=== PATIENT | male | born 1985 | race Caucasian/White ===

== ENCOUNTER 2022-07-20 01:27 | Emergency (ER) | payer OTHER, SELFPAY ==
[2022-07-20 01:45] VITALS: BP 153/100; PULSE 122; RESP 20; TEMP 36.1; O2SAT 97; BMI 30.3
[2022-07-20] MEDS: LORazepam 2 MG/ML inj 0.5 MG IVP (02:12)
[2022-07-20] MEDS: GI COCKTAIL (VISC LIDO/ANTACID) 30 ML PO (02:18)
[2022-07-20 02:22] LABS: Chloride* 104 mmol/L (96-114); Potassium* 3.7 mmol/L (3.6-5.1); Sodium* 141 mmol/L (135-149)
[2022-07-20 02:24] LABS: Creatinine* 0.9 mg/dL (0.5-1.5); Est. Creatinine Clearance* 115.65; Estimated Glomerular Filt Rate 115 ml/min
[2022-07-20 02:25] LABS: Blood Urea Nitrogen* 14 mg/dL (5-24); Calcium* 9.9 mg/dL (8.4-10.6); Carbon Dioxide* 24 mmol/L (20-32); Glucose* 113 mg/dL (60-115)
[2022-07-20 02:40] VITALS: BP 125/85; PULSE 94; RESP 16; O2SAT 96
[2022-07-20 02:40] LABS: Troponin I* < 0.01 ng/mL (0.01-0.04)
--- NOTE | 2022-07-20 02:42 | ED.NURSE ---
Patient reports improvement of symptoms. Denies further needs at this times.
[2022-07-20 03:00] VITALS: BP 141/90; PULSE 90; RESP 14; O2SAT 96
--- NOTE | 2022-07-20 03:36 | ED.CHESTPAIN ---
HPI - Chest Pain General Chief Complaint: Chest Pain Stated Complaint: Chest pain Time Seen by Provider: 07/20/22 01:57 History of Present Illness HPI narrative: 36-year-old man presenting to the emergency department with concern of some burning epigastric and sternal chest discomfort that he would relate to heartburn. He had tried some Tums and did not make much difference. Became increasingly stressed about this. Does report some tingliness in his hands. He thinks he is probably having now panic attack. His heart rate he said was really high and he just could not calm down the way he might typically try to do. Over the last 3 months has had maybe 5 or 6 panic attacks. Notes a history of increased anxiety this time of year. Does have a family with children. Tonight with the heartburn/chest pain he was worried he might be having a heart attack. No personal history of cardiovascular disease. No dysrhythmias noted. Sounds like father may have had early cardiac disease. 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 Has also history of bipolar disorder for which he takes lamotrigine. Trazodone for sleep usually works and just did not help him tonight. Related Data Home Medications Medication Instructions Recorded Confirmed lamotrigine 200 mg tablet mg 07/20/22 trazodone 100 mg tablet mg 07/20/22 Allergies Allergy/AdvReac Type Severity Reaction Status Date / Time No Known Drug Allergies Allergy Verified 07/20/22 01:45 Review of Systems Status of ROS Reports: 10 or more systems reviewed and unremarkable except as noted in History and below PFSH PFS Social History Smoking Status: Never smoker Do you use any of these nicotine containing products: None Second hand tobacco smoke exposure: No How often do you have a drink containing alcohol: never AUDIT-C Alcohol total score: 0 Non-prescribed substance use: denies use service: No Exam Narrative Exam Narrative: Pleasant. Mildly anxious. Bearded. Skin is warm and dry. No evidence of self-harm. Does have some tattoos across the upper chest. Is breathing easily now. Cranial nerves 2-12 to be intact. Moving all extremities without difficulty. He is well perfused. Lungs are clear. Cardiovascular is tachycardic in a regular rhythm. Abdomen is soft and a little uncomfortable to palpation in the mid-epigastrium. Normal and intact sensation. Const Vital Signs, click to edit/add: Vital Signs - 24 hr 07/20/22 01:45 07/20/22 02:40 07/20/22 03:00 Temperature 97.0 F L Pulse Rate [Pulse Oximeter] 122 H 94 90 Respiratory Rate 20 16 14 Blood Pressure [Left Upper Arm] 153/100 H 125/85 141/90 H Pulse Oximetry 97 96 96 Oxygen Delivery Method Room Air Room Air Room Air 07/20/22 05:51 Temperature Pulse Rate [Pulse Oximeter] 85 Respiratory Rate 16 Blood Pressure [Left Upper Arm] 149/72 H Pulse Oximetry Oxygen Delivery Method Documenting provider has reviewed patient's vital signs: yes Course Vital Signs Vital signs: Initial Vital Signs Temperature 97.0 F L 07/20/22 01:45 Temperature Source Temporal Artery Scan 07/20/22 01:45 Pulse Rate 122 H 07/20/22 01:45 Pulse Rhythm 07/20/22 01:45 Respiratory Rate 20 07/20/22 01:45 Blood Pressure 153/100 H 07/20/22 01:45 Blood Pressure Mean 117 07/20/22 01:45 Pulse Oximetry 97 07/20/22 01:45 Oxygen Delivery Method 07/20/22 01:45 Vital Signs Temperature 97.0 F L 07/20/22 01:45 Pulse Rate 122 H 07/20/22 01:45 Respiratory Rate 20 07/20/22 01:45 Blood Pressure 153/100 H 07/20/22 01:45 Pulse Oximetry 97 07/20/22 01:45 Oxygen Delivery Method 07/20/22 01:45 Temperature 97.0 F L 07/20/22 01:45 Pulse Rate 85 07/20/22 05:51 Respiratory Rate 16 07/20/22 05:51 Blood Pressure 149/72 H 07/20/22 05:51 Pulse Oximetry 96 07/20/22 03:00 Oxygen Delivery Method 07/20/22 03:00 MDM - Chest Pain MDM Narrative Medical decision making narrative: IV was established monitor on threat monitoring analyst. Checked chemistries including troponin which were normal. Given lorazepam and GI cocktail. Symptoms settled during time in the ER and heart rate dropped into the low 80s. Closer to departure did have some questions whether something like low-dose lorazepam would be helpful. Discussed possible benefit of other treatments and the potential slippery slope that is a benzodiazepine particularly given other aspects of his past medical. Overall improved now at least. Offered encouragement and praise regarding his continued sobriety. Lab Data Attestation: I reviewed the patient's lab results. Labs: Lab Results 07/20/22 Range/Units 02:00 Sodium 141 (135-149) mmol/L Potassium 3.7 (3.6-5.1) mmol/L Chloride 104 (96-114) mmol/L Carbon Dioxide 24 (20-32) mmol/L BUN 14 (5-24) mg/dL Creatinine 0.9 (0.5-1.5) mg/dL Estimated Creat Clear 115.65 Estimated GFR 115 ml/min Glucose 113 (60-115) mg/dL Calcium 9.9 (8.4-10.6) mg/dL Troponin I < 0.01 L (0.01-0.04) ng/mL ECG Data Attestation: I personally reviewed and interpreted this ECG as follows: (Sinus tachycardia rate of 121) Discharge Plan Discharge Clinical Impression: Heartburn, Panic attack Patient Disposition: Home, Self-Care Condition: Improved Additional Instructions: Yes. I think it would be a good idea if you to follow-up with your primary care provider to discuss further treatment for your anxiety, particularly if frequency of events are escalating. You might also at that time talk about treatment for heartburn. There are certainly medications [id number] if you choose. Medications like famotidine can get to effect fairly quickly and can also be taken daily. Otherwise medications like omeprazole are also available [id number] but are usually intended for longer-term treatment and are less helpful for immediate relief of a flare of heartburn. Otherwise you could try liquid antacid/anti-gas as needed. Try to get regular and quality sleep. Try to get a little heart pumping exercise in daily. Prescriptions: No Action lamotrigine 200 mg tablet Label Comments: TAKE 1 TABLET BY MOUTH EVERY DAY trazodone 100 mg tablet Label Comments: TAKE 1 TABLET (100 MG) BY MOUTH NIGHTLY NEEDED FOR SLEEP Follow Up/Referrals: Provider,Not a Local [Primary Care Provider] - Stand Alone Forms: Ayannah Info Instructions
[2022-07-20 05:51] VITALS: BP 149/72; PULSE 85; RESP 16
== END 2022-07-20 06:47 | disposition home or self-care (01) ==
PROVIDERS: Emergency Provider Family Medicine
DX: R12 Heartburn (principal); F41.0 Panic disorder [episodic paroxysmal anxiety]
CPT/HCPCS: 36415; 80048; 84484; 93005; 96374; 99284; A9270; J2060

== ENCOUNTER 2022-08-25 11:12 | Outpatient (CLI) | payer OTHER, SELFPAY ==
[2022-08-25 14:33] LABS: Albumin* 4.7 g/dL (3.3-5.0); Chloride* 103 mmol/L (96-114)
[2022-08-25 14:34] LABS: Potassium* 4.8 mmol/L (3.6-5.1); Sodium* 140 mmol/L (135-149)
[2022-08-25 14:36] LABS: Alkaline Phosphatase* 72 U/L (40-150); Aspartate Amino Transferase* 38 U/L (12-35); Bilirubin Total* 0.6 mg/dL (0.1-1.5); Blood Urea Nitrogen* 16 mg/dL (5-24); Carbon Dioxide* 30 mmol/L (20-32); Cholesterol* 238 mg/dL (90-199); Creatinine* 0.9 mg/dL (0.5-1.5); Estimated Glomerular Filt Rate 114 ml/min; Glucose* 91 mg/dL (60-115); Total Protein* 7.7 g/dL (6.0-8.3); Triglycerides* 259 mg/dL (40-149)
[2022-08-25 14:37] LABS: Alanine Aminotransferase* 79 U/L (4-50); Calcium* 9.8 mg/dL (8.4-10.6); HDL Cholesterol* 43 mg/dL (>=40); LDL Cholesterol Calculated 143 mg/dL (<100)
[2022-08-25 14:45] LABS: Creatinine Urine 141.8 mg/dL
[2022-08-25 14:48] LABS: Microalbumin Creatinine Ratio 0 mg/g (0-30); Microalbumin Urine < 1 mg/dL
== END 2022-08-25 11:13 | disposition home or self-care (01) ==
PROVIDERS: PCP Family Medicine; Visit Provider Family Medicine
DX: Z00.00 Encounter for general adult medical examination without abnormal findings (principal); F31.32 Bipolar disorder, current episode depressed, moderate; R03.0 Elevated blood-pressure reading, without diagnosis of hypertension; Z13.1 Encounter for screening for diabetes mellitus; Z13.6 Encounter for screening for cardiovascular disorders
CPT/HCPCS: 80053; 80061; 82043; 82570

== ENCOUNTER 2022-12-27 20:59 | Outpatient (CLI) | payer OTHER, SELFPAY ==
--- NOTE | 2022-12-31 08:48 | W.PM.SLEEP ---
Sleep Study Details Details Interpreting Provider: Haroon Date of Sleep Study: 12/27/22 Sleep Study Details: STUDY TYPE:? Hospital-based attended ? BMI:? 30.4 ORDERING PROVIDER:Claribel Avitia INDICATION:? Concerns about sleep apnea ? SLEEP SUMMARY:? 347 minutes total sleep time, efficiency 87, arousal index 30.8 RESPIRATORY SUMMARY: Mean oxygen awake 95 asleep 94, minimum 90? AHI 5.4, RDI 15.4 Supine AHI 12 supine RDI 18 Nonsupine AHI 2.3, nonsupine RDI 14.2 No supine REM sleep was seen PERIODIC LIMB MOVEMENTS OF SLEEP:? None were noted CARDIAC:? Awake 79, asleep 71 no arrhythmias noted IMPRESSION:? Moderate obstructive sleep apnea with an AHI of 5.4 and RDI of 15.4. There is significant supine dependency. RECOMMENDATION: Treatment options would include CPAP AutoSet 4-17, dental appliance and/or airway expansion surgery. CPAP would be favored modality.cf
== END 2022-12-27 21:00 | disposition home or self-care (01) ==
LOC: SLEEP 20:59
PROVIDERS: PCP Family Medicine; Visit Provider Internal Medicine Cardiovascular Disease
DX: G47.33 Obstructive sleep apnea (adult) (pediatric) (principal)
CPT/HCPCS: 95810

== ENCOUNTER 2022-12-28 17:14 | Outpatient (CLI) | payer OTHER, SELFPAY | END 2022-12-28 17:15 | disposition home or self-care (01) | PROVIDERS: PCP Family Medicine; Visit Provider Family Medicine | DX: I10 Essential (primary) hypertension (principal); E56.9 Vitamin deficiency, unspecified; E78.2 Mixed hyperlipidemia | CPT/HCPCS: 80164; 80165; 80175 ==

== ENCOUNTER 2023-01-18 12:20 | Outpatient (REF) | payer OTHER, SELFPAY ==
[2023-01-18 12:49] LABS: Basophils Absolute Auto 0.04 K/uL (0.00-0.30); Basophils Percent Auto 0.6 % (0.0-3.0); Eosinophils Absolute Auto 0.09 K/uL (0.00-0.50); Eosinophils Percent Auto 1.3 % (0.0-7.0); Hematocrit 49.8 % (37.0-53.0); Hemoglobin* 16.2 gm/dL (13.5-17.5); Immature Granulocytes Abs Auto 0.02 K/uL (0.00-0.30); Immature Granulocytes Pct Auto 0.3 %; Lymphocytes Percent Auto 33.3 % (20-44); Mean Corpuscular HGB Conc 33 gm/dL (32-36); Mean Corpuscular Hemoglobin 28 pg (26-34); Mean Corpuscular Volume 87 fL (80-100); Monocytes Percent Auto 6.8 % (0.0-11.0); Neutrophils Absolute Auto 3.99 K/uL (1.7-7.0); Neutrophils Percent Auto 57.7 % (42.0-72.0); Platelet Count* 313 K/uL (140-440); RDW Coefficient of Variation % 11.8 % (11.5-15.5); Red Blood Count 5.73 m/uL (4.30-5.90); White Blood Count* 6.91 K/uL (4.50-11.00)
[2023-01-18 12:56] LABS: Slide Review Reflex No
[2023-01-18 12:59] LABS: Albumin* 4.8 g/dL (3.3-5.0)
[2023-01-18 13:02] LABS: Aspartate Amino Transferase* 25 U/L (12-35); Bilirubin Direct* 0.2 mg/dL (0.0-0.5); Bilirubin Total* 0.6 mg/dL (0.1-1.5); Glucose* 99 mg/dL (60-115); Total Protein* 7.9 g/dL (6.0-8.3)
[2023-01-18 13:03] LABS: Alanine Aminotransferase* 37 U/L (4-50); Alkaline Phosphatase* 77 U/L (40-150)
== END 2023-01-18 12:21 | disposition home or self-care (01) ==
LOC: NPINS 12:20
PROVIDERS: PCP Family Medicine
DX: F31.81 Bipolar II disorder (principal)
CPT/HCPCS: 80076; 80164; 80165; 82947; 85025

== ENCOUNTER 2024-01-10 10:25 | Outpatient (CLI) | payer OTHER, SELFPAY ==
--- OUTSIDE RECORDS SUMMARY | 2024-01-12 10:57 | XMS_ITS | Encounter Summary ---
Author Organization [place] Address [facility]ly [facility] [place] [address] Care Team Providers Care Washateria Attendant Name Role Phone César Baugh MD Primary Care Provider [phone] César Baugh MD Unavailable [phone] Reason for Visit * Reason Comments Medication Refill Encounter Details Date Type Department Care Team (Late st Contact Info) Description 07/30/[address] [facility] [address] [place] [phone] Cés[place] [address] [place], [place] [phone] Medication Refill Social History Tobacco Use Types Packs/Day Years Used Date Smoking Tobacco: Never Smokeless Tobacco: Never Alcohol Use Standard Drinks/Week Comments No 0 (1 standard drink = 0.6 oz pur e alcohol) Social Connection and Isolat ion Panel [NHANES] Answer Date Recorded Frequency of Communication w ith Friends and Family Once a week 07/17/2019 Frequency of Social Gatherin gs with Friends and Family Once a week 07/17/2019 Attends Voodoo Services More than 4 times per year 07/17/2019 Active Member of Clubs or Organizations No 07/17/2019 Attends Club or Organization Meetings Never 07/17/2019 Marital Status 07/17/2019 AUDIT-C Answer Date Recorded Q1: How often do you have a drink containing alc ohol? Never 07/17/2019 Q2: How many drinks containi ng alcohol do you have on a typical day when you are drinking? Patient declined 07/17/2019 Q3: How often do you have si x or more drinks on one occasion? Never 07/17/2019 Overall Financial Resource Strain (CARDIA) Answe r Date Recorded How hard is it for you to pa y for the very basics like food, housing, medical care, and heating? Not very hard 07/17/2019 PHQ-2 Answer Date Recorded PHQ-2 Score 0 08/27/2020 [facility] - Occupational Stress Questionnaire Answer Date Recorded Feeling of Stress To some extent 07/17/2019 Exercise Vital Sign Answer Date Recorde d Days of Exercise per Week 2 days 2018 Minutes of Exercise per Session 60 min 07/17/2019 Hunger Vital Sign Answer Date Recorded Within the past 12 months, y ou worried that your food would run out before you got the money to buy more. Never true 07/17/20 19 Within the past 12 months, t he food you bought just didn't last and you didn't have money to get more. Never true 07/17/2019 PRAPARE - Transportation Answer Date Re corded In the past 12 months, has l ack of transportation kept you from medical appointments or from getting medications? No 06/20 In the past 12 months, has l ack of transportation kept you from meetings, work, or from getting things needed for daily living? No 07/17/2019 Education Answer Date Recorded What is the highest level of school you have completed or the highest degree you have received? Bachelor's degree (e.g., BA, AB, BS) 07/17/2019 Sex and Gender Information Value Date Recorded Sex Assigned at Not on file Gender Identity Not on file Sexual Orientation Not on file documented as of this encounter Miscellaneous Notes * Telephone Encounter - Maegan Carrasco CMA - 08/05/2021 4:03 PM COMMUNITY CENTER COORDINATOR LMOM Maegan Carrasco CMA UNITY CENTER COORDINATOR * Telephone Encounter - César Baugh MD - 07/31/2021 3:02 PM CST 90-day sent Needs visit twice yearly César Baugh MD UNITY CENTER COORDINATOR * Telephone Encounter - Sudha Jane RN - 07/31/2021 2:48 PM CST Routing refill request to provider for review/approval because: Patient needs to be seen because: due in May Please route to appropriate staff to schedule appointment. Thanks UNITY CENTER COORDINATOR documented in this encounter Plan of Treatment Not on file documented as of this encounter Visit Diagnoses Diagnosis Bipolar 2 disorder (H) Other bipolar disorders documented in this encounter Additional Health Concerns Infection Onset Date Last Indicated Resolved Time COVID-19 12/17/2022 12/17/2022 01/07/2023 11:3 9 PM CDT Assessment Noted Time PHQ-9 Depression Total Score: 2 08/28/19 21 7:06 AM COMMUNITY CENTER COORDINATOR documented as of this encounter Care Teams Washateria Attendant Relationship Specialty Start Date End Date Cés[place] [address] [place] [address] PCP - General Family Practice 11/05/16 Cés[place] [address] [place] [address] Assigned PCP 02/06/16 documented as of this encounter
--- OUTSIDE RECORDS SUMMARY | 2024-01-12 10:57 | XMS_ITS | Referral Summary ---
Author Organization [place] Address [address] [facility] [address] Care Team Providers Care Vessel Master Name Role Phone César Baugh MD Primary Care Provider [phone] César Baugh MD Unavailable [phone] Allergies No known active allergies Medications Medication Sig Dispensed Refills Start Date End Date Status multivitamin, therapeutic with minerals (THERA-VIT-M) TABSIndications:Depre ssion Take 1 tablet by mouth daily 30 each 2 01/07/2015 Active ketoconazole (NIZORAL) 2 % external shampooIndications:Ti pablo versicolor Apply to the affected area and wash off after 5 minutes. 120 mL 11 12/01/2021 Active lamoTRIgine (LAMICTAL) 200 MG tabletIndications:Bip olar 2 disorder (H) Take 1 tablet (200 mg) by mouth daily 90 tablet 1 12/01/2021 Active traZODone (DESYREL) 100 MG tabletIndications:Ins omnia due to other mental disorder,Bipolar 2 disorder (H) TAKE 1 TABLET BY MOUTH NIGHTLY NEEDED FOR SLEEP 90 tablet 11/27/2022 Active metoprolol succinate ER (TOPROL XL) 25 MG 24 hr tablet Take 25 mg by mouth daily Active OLANZapine (ZYPREXA) 10 MG tablet Take 2 tablets (20 mg) by mouth At Bedtime 10 tablet 12/18/2022 Active Active Problems Problem Noted Date Diagnosed Date COVID-19 vaccine administered 12/01/2021 Last Assessment & Plan: Recommended Encounter for vasectomy counseling 08/28/2020 Last Assessment & Plan: He has just had his third child. He would like information on vasectomy. Provided. He will discuss with his . We can refer him to Dr. Alvarado should he wish by phone Excessive daytime sleepiness 07/17/2019 Last Assessment & Plan: Discussed differential. He snores. Recommend formal study Hypersomnia 11/09/2016 Last Assessment & Plan: Tired in the day. Higher incidence of KYLEIGH with mental illness. Recommend formal study Tinea versicolor 11/09/2016 Last Assessment & Plan: Refill effective therapy CARDIOVASCULAR SCREENING; LDL GOAL LESS THAN 160 03/02/2016 Bipolar 2 disorder 03/02/2016 Last Assessment & Plan: He thinks he is doing well. 2 episodes of depression a few weeks each. Suggest extremely slow cycling. No intolerance. No changes. 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 Recommend formal study Resolved Problems Problem Noted Date Diagnosed Date Resolved Date Vitiligo 11/09/2016 11/09/2016 Anxiety 03/02/2016 07/17/2019 Depression 01/04/2015 03/02/2016 Immunizations Name Administration Dates Next Due COVID-19 Monovalent Booster 18+ (Moderna) 2021 DTaP, Unspecified 06/04/2016 Influenza (IIV3) PF 03/20/2017 Influenza Vaccine >6 months,quad, PF 05/21/2021, 07/17/2019,06/04/2016 TDAP Vaccine (Adacel) 06/04/2016 Social History Tobacco Use Types Packs/Day Years [...] and Family Once a week 07/17/2019 Attends Worship Services More than 4 times per year [...] 07/17/2019 PHQ-2 Answer Date Recorded PHQ-2 Score 3 12/01/2021 [facility] - Occupational Stress Questionnaire Answer Date Recorded [...] things needed for daily living? No 07/17/2019 Adolescent Education Answer Date Record ed Getting School Help Needed Not on file 04/09 Education Answer Date Recorded What is the highest level of school you have completed or the highest degree you have received? Bachelor's degree (e.g., BA, AB, BS) 07/17/2019 Sex and Gender Information Value Date Recorded Sex Assigned at Not on file Gender Identity Not on file Sexual Orientation Not on file Last Filed Vital Signs Vital Sign Reading Time Taken Comments Blood Pressure 124/84 12/18/2022 9:12 PM CDT Pulse 102 12/18/2022 9:12 PM CDT Temperature 36.7 ??C (98.1 ??F) 12/18/2022 4:09 PM CD T Respiratory Rate 16 12/18/2022 9:12 PM CDT Oxygen Saturation 99% 12/18/2022 9:12 PM CDT Inhaled Oxygen Concentration - - Weight 86.2 kg (190 lb) 12/18/2022 4:09 PM CDT Height 175.3 cm (5' 9) 12/17/2022 10:44 PM CDT Body Mass Index 28.06 12/17/2022 10:44 PM CDT Plan of Treatment Not on file Procedures Procedure Name Priority Date/Time Associated Diagnosis Comments COMPREHENSIVE METABOLIC PANEL Routine 12/01/2021 3:16 PM CDT Bipolar 2 disorder (H) HEPATITIS C SCREEN REFLEX TO HCV RNA QUANT AND GENOTYPE Routine 08/27/2020 5:44 PM OUTBOARD MOTOR INSPECTOR Need for hepatitis C screening test HIV ANTIGEN ANTIBODY COMBO Routine 02/22/2018 4:10 PM CDT Encounter for screening for HIV from Last 3 Months or Most Recently Relevant to Health Maintenance Results * Comprehensive metabolic panel (BMP + Alb, Alk Phos, ALT, AST, Total. Bili, TP) (12/01/2021 3:16 PM CDT) Sodium 141 133 - 144 mmol/L 12/03/2021 7:48 PM CDT [facility] Potassium 4.3 3.4 - 5.3 mmol/L 12/03/2021 7:48 PM CDT [facility] Chloride 108 94 - 109 mmol/L 12/03/2021 7:48 PM CDT [facility] Carbon Dioxide (CO2) 25 20 - 32 mmol/L 12/03/2021 7:48 PM CDT [facility] Anion Gap 8 3 - 14 mmol/L 12/03/2021 7:48 PM CDT [facility] Urea Nitrogen 11 7 - 30 mg/dL 12/03/2021 7:48 PM CDT [facility] Creatinine 0.92 0.66 - 1.25 mg/dL 12/03/2021 7:48 PM CDT [facility] Calcium 8.8 8.5 - 10.1 mg/dL 12/03/2021 7:48 PM CDT [facility] Glucose 75 70 - 99 mg/dL 12/03/2021 7:48 PM CDT [facility] Alkaline Phosphatase 63 40 - 150 U/L 12/03/2021 7:48 PM CDT [facility] AST 27 0 - 45 U/L 12/03/2021 7:48 PM CDT [facility] ALT 54 0 - 70 U/L 12/03/2021 7:48 PM CDT [facility] Protein Total 7.5 6.8 - 8.8 g/dL 12/03/2021 7:48 PM CDT [facility] Albumin 4.3 3.4 - 5.0 g/dL 12/03/2021 7:48 PM CDT [facility] Bilirubin Total 0.4 0.2 - 1.3 mg/dL 12/03/2021 7:48 PM CDT [facility] GFR Estimate >90 >60 mL/min/1.7 3m2 12/03/2021 7:48 PM CDT [facility] Comment:Effective June 192020 eGFRcr in adults is calculated using the 2020 CKD-EPI creatinine equation which includes age and gender (Mitchell et al., NEJM, DOI: 10.1056/MLJRgm7701696) Blood STRUCTURE OF RIGHT UPPER LIMB / Unknown Venipuncture / Unknown 12/01/2021 3:16 PM CDT 12/01/2021 3:16 PM CDT César Baugh MD LAB - BLOOD ORDERABL ES [facility] [place] [facility] [address] [facility] [address] [facility], [address] [place] [address], [facility] [phone] * Hepatitis C Screen Reflex to HCV RNA Quant and Genotype (08/27/2020 5:44 PM OUTBOARD MOTOR INSPECTOR) Hepatitis C Antibody Nonreactive NR^Nonre active 08/28/2020 4:25 PM OUTBOARD MOTOR INSPECTOR [facility] Comment: Assay performance characteristics have not been established for newborns, infants, and children Blood specimen (specimen) 08/27/2020 5:44 PM OUTBOARD MOTOR INSPECTOR 08/27/2020 5:45 PM OUTBOARD MOTOR INSPECTOR César Baugh MD LAB - BLOOD ORDERABL ES Performing Organization Address City/[facility]/ZIP Co de Phone Number [facility] [address] [place] [address] * HIV Antigen Antibody Combo (02/22/2018 4:10 PM CDT) HIV Antigen Antibody Combo Nonreactive NR^Nonrea ctive 02/24/2018 10:[address] [facility] Comment:HIV-1 p24 Ag & HIV-1 /HIV-2 Ab Not Detected Blood specimen (specimen) 02/22/2018 4:10 PM CDT 02/22/2018 4:11 PM CDT Cséar Baugh MD LAB - BLOOD ORDERABL ES Performing Organization Address [facility] Co de Phone Number [facility] [address] [place] [address] from Last 3 Months or Most Recently Relevant to Health Maintenance Advance Directives For more information, please contact: [phone] * Full Code (Latest Code Status on File) Date Activated Date Inactivated Comments 01/04/2015 3:13 AM 01/07/2015 4:29 PM Care Teams Vessel Master Relationship Specialty Start Date End Date Cés[place] [address] [place] [address] PCP - General Family Practice 11/05/16 Cés[place] [address] [place] [address] Assigned PCP 02/06/16
--- OUTSIDE RECORDS SUMMARY | 2024-01-12 10:57 | XMS_ITS | Encounter Summary ---
Author Organization [place] Address [facility] [place] [address] Care Team Providers Care Overseamer Name Role Phone César Baugh MD Primary Care Provider [phone] César Baugh MD Unavailable [phone] Natasha Young Unavailable Unavailable Reason for Visit * Reason Comments Medication Refill Encounter Details Date Type Department Care Team (Late st Contact Info) Description 07/04/2020 Refill [facility] [address] [place] [phone] César Baugh [place] [id number] [place] [phone] Medication Refill Social History Tobacco Use Types [...] and Family Once a week 07/17/2019 Attends [employer] Services More than 4 times per year [...] 07/17/2019 PHQ-2 Answer Date Recorded PHQ-2 Score 2 07/17/2019 [facility] - Occupational Stress Questionnaire Answer [...] encounter Miscellaneous Notes * Telephone Encounter - Ibis Navas RN - 07/04/2020 2:14 PM LOG CUT OFF SAWYER Medication is being filled for 1 time refill only due to: Patient needs to be seen because before next refill. . Routing to team to assist with making annual visit. Ibis Navas RN Flex CUT OFF SAWYER documented in this encounter Plan of Treatment Not on file documented as of this encounter Visit Diagnoses Diagnosis Bipolar 2 disorder (H) Other bipolar disorders documented in this encounter Additional Health Concerns Infection Onset Date Last Indicated Resolved Time COVID-19 12/17/2022 12/17/2022 01/07/2023 11:3 9 PM CDT Assessment Noted Time PHQ-9 Depression Total Score: 4 03/03/20 16 7:15 AM CDT documented as of this encounter Care Teams Overseamer Relationship Specialty Start Date End Date Cés[place] [address] [place] [address] PCP - General Family Practice 11/05/16 Cés[place] [address] [place] [address] Assigned PCP 02/06/16 Natasha Young Personal Advocate & Liaison (PAL) 07/04/20 06/23/21 documented as of this encounter
--- OUTSIDE RECORDS SUMMARY | 2024-01-12 10:57 | XMS_ITS | Encounter Summary ---
Author Organization [place] Address [address] [place] [address] Care Team Providers Care Manager Wound Name Role Phone [facility] Primary Care Prov ider César Baugh MD Primary Care Provider [phone] César Baugh MD Unavailable [phone] César Baugh MD Unavailable [phone] Micki Orona Unavailable Unavailable Natasha Young Unavailable Unavailable Reason for Visit * Reason Onset Date Comments MH/CD Inpatient 01/04/2015 Encounter Details Date Type Department Care Team ([facility] st Contact Info) Description 01/04/2015 Telephone [facility] Behavioral Health Intake [address] [place] [phone] Generic, Behavioral Intake, MH/CD Inpatient Social History Tobacco Use Types Packs/Day Years Used Date Smoking Tobacco: Never Alcohol Use Standard Drinks/Week Comments Yes 0 (1 standard drink = 0.6 oz pur e alcohol) Sex and Gender Information Value Date Recorded Sex Assigned at Not on file Gender Identity Not on file Sexual Orientation Not on file documented as of this encounter Miscellaneous Notes * Telephone Encounter - Clau Hernandez Krishna - 01/04/2015 3:10 AM CDT 01/04/15 S: [facility] with passive suicidal ideation, no plan. B: pt has been having increased depression for the past 5 months since a promotion and the ofhis daughter. Pt reports anxiety, depression, and feeling overwhelmed. Stressors include his job and feeling like a failure as a father, , and at work. Pt reports feeling like he wishes he wouldn't wake up. Pt started drinking on weekends to the point of being out of control. Pt was at a conference in [place] this week, was drinking, and called to tell her what was going on. His work flew him home to come to the hospital. Pt reports not sleeping for the past 48 hours. A: pt is cooperative, voluntary. R: admit 10/lesly documented in this encounter Plan of Treatment Not on file documented as of this encounter Visit Diagnoses Not on filedocumented in this encounter Additional Health Concerns Infection Onset Date Last Indicated Resolved Time COVID-19 12/17/2022 12/17/2022 01/07/2023 11:3 9 PM CDT documented as of this encounter Care Teams Manager Wound Relationship Specialty Start Date End Date [facility], [address] [address] PCP - General 01/04/15 11/04/16 Cés[place] [address] [place] [address] PCP - General Family Practice 11/05/16 Cés[place] [address] [place] [address] PCP - Assigned PCP 02/06/16 09/20/18 Cés[place] [address] [place] [address] Assigned PCP 02/06/16 Micki Orona Personal Advocate & Liaison (PAL) Family Practice 07/17/19 07/03/20 Natasha Young Personal Advocate & Liaison (PAL) 07/04/20 06/23/21 documented as of this encounter
--- OUTSIDE RECORDS SUMMARY | 2024-01-12 10:57 | XMS_ITS | Encounter Summary ---
Author Organization [place] Address [facility] [place] [address] Care Team Providers Care Retail Services Professional Name Role Phone César Baugh MD Primary Care Provider [phone] César Baugh MD Unavailable [phone] Reason for Visit * Reason Comments Medication Refill Encounter Details Date Type Department Care Team (Late st Contact Info) Description 11/27/2022 Refill [facility] [address] [place] [phone] Cés[place] [address] [place], [place] [id number] Medication Refill Social History Tobacco Use Types [...] Answer Date Recorded PHQ-2 Score 3 12/01/2021 [facility] - Occupational Stress Questionnaire Answer Date [...] encounter Miscellaneous Notes * Telephone Encounter - Jazmin Andino RN - 11/27/2022 1:48 PM CDT Medication is being filled for 1 time refill only due to: Patient needs to be seen because it has been more than one year since last visit. Please call to schedule an annual visit. Jazmin Andino RN documented in this encounter Plan of Treatment Not on file documented as of this encounter Visit Diagnoses Diagnosis Insomnia due to other mental disorder Bipolar 2 disorder (H) Other bipolar disorders documented in this encounter Additional Health Concerns Infection Onset Date Last Indicated Resolved Time COVID-19 12/17/2022 12/17/2022 01/07/2023 11:3 9 PM CDT Assessment Noted Time PHQ-9 Depression Total Score: 8 12/03/19 7:05 AM CDT documented as of this encounter Care Teams Retail Services Professional Relationship Specialty Start Date End Date Cés[place] [address] [place] [address] PCP - General Family Practice 11/05/16 Cés[place] [address] [place] [address] Assigned PCP 02/06/16 documented as of this encounter
--- OUTSIDE RECORDS SUMMARY | 2024-01-12 10:57 | XMS_ITS | Clinical Summary ---
Author Organization [place] Address [address] [facility] [place] [address] Care Team Providers Care Refrigeration Service Inspector Name Role Phone César Baugh MD Primary Care Provider [phone] César Baugh MD Unavailable [phone] Allergies No known active allergies Medications [...] PF 05/21/2021, 07/17/2019,06/04/2016 TDAP Vaccine (Adacel) 06/04/2016 Family History Medical History Relation Comments Diabetes Brother Diabetes Father Other - See Comments Other gastropares is Anxiety Disorder Sister Relation Status Comments Brother Alive Daughter 1 Alive Daughter 2 Alive Father Alive Maternal Grandfather Maternal Grandmother Alive Mother Alive Other Paternal Grandfather Paternal Grandmother Alive Sister Alive Social History Tobacco Use Types Packs/Day Years [...] and Family Once a week 07/17/2019 Attends [employer] Services More than 4 times per year [...] Answer Date Recorded PHQ-2 Score 3 12/01/2021 [facility] - Occupational Stress [...] 12/17/2022 10:44 PM CDT Plan of Treatment Health Maintenance Due Date Last Done Comments ADVANCE CARE PLANNING 1987 HEPATITIS B IMMUNIZATION (1 of 3 - 19+ 3-dose series) 2006 YEARLY PREVENTIVE VISIT 08/27/2021 08/27/19 21, 07/17/2019, 02/22/2018, Additional history exists ANNUAL REVIEW OF HM ORDERS 07/31/2022 07/31/2021, COVID-19 Vaccine ( season) 2023 12/01/2021, 10/11/2020, 09/13/2020 PHQ-2 (once per calendar year) 2023 12/01/2021, 12/01/2021, 12/01/2021, Additional history exists INFLUENZA VACCINE (Season Ended) 2024 05/21/2021, 04/06/2020, 04/06/2020, Additional history exists GLUCOSE 12/01/2024 12/01/2021, 03/2021, 07/17/2019, Additional history exists DTAP/TDAP/TD IMMUNIZATION (3 - Td or Tdap) 06/04/2026 06/04/2016, 06/04/2016 HIV SCREENING Completed 02/22/2018 HEPATITIS C SCREENING Completed 08/27/2020 HPV IMMUNIZATION Aged Out No longer e ligible based on patient's age to complete this topic IPV IMMUNIZATION Aged Out No longer e ligible based on patient's age to complete this topic MENINGITIS IMMUNIZATION Aged Out No l onger eligible based on patient's age to complete this topic Pneumococcal Vaccine: Pediatrics (0 to 5 Years) and At-Risk Patients (6 to 64 Years) Aged Out No longer eligible based on patient's age to complete this topic RSV MONOCLONAL ANTIBODY Aged Out No l onger eligible based on patient's age to complete this topic Procedures Procedure Name Priority Date/Time Associated Diagnosis Comments COMPREHENSIVE METABOLIC PANEL Routine 12/01/2021 3:16 PM CDT Bipolar 2 disorder (H) HEPATITIS C SCREEN REFLEX TO HCV RNA QUANT AND GENOTYPE Routine 08/27/2020 5:44 PM APPLICATION DEVELOPMENT LIAISON Need for hepatitis C screening test HIV [...] includes age and gender (Mitchell et al., NEJ, DOI: 10.1056/[id number]) Blood STRUCTURE OF RIGHT UPPER LIMB / Unknown Venipuncture / Unknown 12/01/2021 3:16 PM CDT 12/01/2021 3:16 PM CDT César Baugh MD LAB - BLOOD ORDERABL ES [facility] [address] [facility], [address] [address], [facility] [phone] * Hepatitis C Screen Reflex to HCV RNA Quant and Genotype (08/27/2020 5:44 PM APPLICATION DEVELOPMENT LIAISON) Hepatitis C Antibody Nonreactive NR^Nonre active 08/28/2020 4:25 PM APPLICATION DEVELOPMENT LIAISON [facility] Comment: Assay performance characteristics have not been established for newborns, infants, and children Blood specimen (specimen) 08/27/2020 5:44 PM APPLICATION DEVELOPMENT LIAISON 08/27/2020 5:45 PM APPLICATION DEVELOPMENT LIAISON César Baugh MD LAB - BLOOD ORDERABL ES Performing Organization Address City/[facility]/ZIP Co de Phone Number [facility] [address] [place] [address] * HIV Antigen Antibody Combo (02/22/2018 4:10 PM CDT) HIV Antigen Antibody Combo Nonreactive NR^Nonrea ctive 02/24/2018 10:58 AM CDT [facility] Comment:HIV-1 p24 Ag & HIV-1 /HIV-2 Ab Not Detected Blood specimen (specimen) 02/22/2018 4:10 PM CDT 02/22/2018 4:11 PM CDT César Baugh MD LAB - BLOOD ORDERABL ES Performing Organization Address City/[facility]/ZIP Co de Phone Number [facility] [address] [place] [address] from Last 3 Months or Most Recently Relevant to Health Maintenance Advance Directives For more information, please contact: [phone] * Full Code (Latest Code Status on File) Date Activated Date Inactivated Comments 01/04/2015 3:13 AM 01/07/2015 4:29 PM Care Teams Refrigeration Service Inspector Relationship Specialty Start Date [place] Date Cés[place] [address] [place] [address] PCP - General Family Practice 11/05/16 Cés[place] [address] [place] [address] Assigned PCP 02/06/16
== END 2024-01-10 10:26 | disposition home or self-care (01) ==
LOC: NFLDREF 01-12 10:56
PROVIDERS: PCP Family Medicine; Referring Provider Family Medicine; Visit Provider Physician Assistant Medical
DX: Z00.00 Encounter for general adult medical examination without abnormal findings (principal); I10 Essential (primary) hypertension; E56.9 Vitamin deficiency, unspecified; E78.2 Mixed hyperlipidemia; F41.9 Anxiety disorder, unspecified; F31.32 Bipolar disorder, current episode depressed, moderate
CPT/HCPCS: 80053; 80061; 82306; 84443